=== PATIENT | female | born 1955 | race Two or more races ===

== ENCOUNTER 2020-07-30 15:46 | Outpatient (CLI) | payer OTHER ==
[~2020-07-30 15:46] MED LIST: COZAAR25 MG
== END 2020-07-30 15:56 | disposition home or self-care (01) ==
LOC: RAD 15:46
PROVIDERS: ATTEND Orthopaedic Surgery Adult Reconstructive Orthopaedic Surgery
DX: M16.0 Bilateral primary osteoarthritis of hip (principal); M17.11 Unilateral primary osteoarthritis, right knee

== ENCOUNTER → 2020-12-18 | Outpatient (CLI) | payer OTHER | END | disposition home or self-care (01) | LOC: RAD 14:33 | PROVIDERS: ATTEND Orthopaedic Surgery Adult Reconstructive Orthopaedic Surgery | DX: M17.12 Unilateral primary osteoarthritis, left knee (principal); Z96.651 Presence of right artificial knee joint ==

== ENCOUNTER 2023-03-26 09:07 | Outpatient (CLI) | payer OTHER | END 2023-03-26 09:14 | disposition home or self-care (01) | LOC: RAD 09:07 | PROVIDERS: ATTEND Physical Medicine & Rehabilitation | DX: M17.12 Unilateral primary osteoarthritis, left knee (principal) ==

== ENCOUNTER 2023-04-10 11:47 | Outpatient (CLI) | payer OTHER | END 2023-04-10 11:57 | disposition home or self-care (01) | LOC: RAD 11:47 | PROVIDERS: ATTEND Pediatrics | DX: M25.562 Pain in left knee (principal) ==

== ENCOUNTER 2024-05-12 12:36 | Outpatient (CLI) | payer OTHER | END 2024-05-12 12:51 | disposition home or self-care (01) | LOC: MAMO-SONO 12:36 | PROVIDERS: ATTEND Pediatrics | DX: N60.11 Diffuse cystic mastopathy of right breast (principal); Z12.31 Encounter for screening mammogram for malignant neoplasm of breast ==

== ENCOUNTER 2024-10-27 09:59 | Outpatient (CLI) | payer OTHER | END 2024-10-27 10:08 | disposition home or self-care (01) | LOC: NUCLEAR 09:59 | DX: R42 Dizziness and giddiness (principal) ==

== ENCOUNTER 2025-04-18 11:23 | Outpatient (CLI) | payer OTHER | END 2025-04-18 11:26 | disposition home or self-care (01) | LOC: RAD 11:23 | PROVIDERS: ATTEND Physical Medicine & Rehabilitation | DX: M17.12 Unilateral primary osteoarthritis, left knee (principal) ==

== ENCOUNTER 2025-05-10 09:05 | Outpatient (CLI) | payer OTHER | END 2025-05-10 09:06 | disposition home or self-care (01) | LOC: SONOGRAMA 09:05 | PROVIDERS: ATTEND Internal Medicine | DX: Q44.6 Cystic disease of liver (principal) ==

== ENCOUNTER 2025-05-23 14:35 | Outpatient (CLI) | payer OTHER | END 2025-05-23 14:38 | disposition home or self-care (01) | LOC: MRI 14:35 | PROVIDERS: ATTEND Physical Medicine & Rehabilitation | DX: M54.2 Cervicalgia (principal); M54.12 Radiculopathy, cervical region | CPT/HCPCS: 72141 ==

== ENCOUNTER → 2025-07-03 09:25 | Outpatient (CLI) | payer OTHER | END | disposition home or self-care (01) | LOC: NUCLEAR 09:25 | PROVIDERS: ATTEND Physical Medicine & Rehabilitation | DX: M81.0 Age-related osteoporosis without current pathological fracture (principal) ==

== ENCOUNTER 2025-07-13 07:12 | Outpatient (CLI) | payer OTHER | END 2025-07-13 07:13 | disposition home or self-care (01) | LOC: NUCLEAR 07:12 | PROVIDERS: ATTEND Physical Medicine & Rehabilitation | DX: M13.0 Polyarthritis, unspecified (principal); M06.9 Rheumatoid arthritis, unspecified | CPT/HCPCS: 78315; A9503 ==

== ENCOUNTER 2025-08-16 07:59 | Outpatient (CLI) | payer OTHER | END 2025-08-16 08:03 | disposition home or self-care (01) | LOC: RAD 07:59 | PROVIDERS: ATTEND Internal Medicine Rheumatology | DX: R42 Dizziness and giddiness (principal); M15.8 Other polyosteoarthritis; M81.0 Age-related osteoporosis without current pathological fracture; M06.09 Rheumatoid arthritis without rheumatoid factor, multiple sites | CPT/HCPCS: 70553; 73120; 76881; Q9965 ==